=== PATIENT | female | born 1985 | race Caucasian/White ===

== ENCOUNTER 2020-01-30 07:55 | Emergency (ER) | payer MEDICAID, SELFPAY ==
[~2020-01-30] VITALS: Ht 162.6 cm; Wt 127.0 kg
[2020-01-30 08:02] VITALS: BP 125/47
--- NOTE | 2020-01-30 08:09 | NUR ---
PATIENT AMBULATED TO BED 8.
--- NOTE | 2020-01-30 08:28 | NUR ---
34 Y/O FEMALE C/O VOMITING/DIARRHEA SINCE YESTERDAY AND NAUSEA SINCE OCTOBER. PT DENIES ANY ABD PAIN AT THIS TIME, STATES SHE FEELS "PRESSURE" IN HER ABDOMINAL AREA. BOWEL SOUNDS NORMOACTIVE IN ALL QUADRANTS. ABD SOFT/ NON DISTENDED. SKIN COOL/DRY. MUCOUS MEMBRANES PINK AND MOIST. RESP EVEN AND UNLABORED IN ALL QUADRANTS. VSS. NKA
[2020-01-30] MEDS: NACL 0.9% 1,000 ML IV ONE (08:51)
[2020-01-30] MEDS: ONDANSETRON 4 MG/2 ML VIAL IVP ONE (08:52)
[2020-01-30 09:06] LABS: BASOPHILS % (AUTO) 0.3 % (0.0-2.0); EOSINOPHILS # (AUTO) 0.1 K/uL (0-0.4); EOSINOPHILS % (AUTO) 1.9 % (0.0-4.0); HEMATOCRIT 42.6 % (36-48); LYMPHOCYTES # (AUTO) 0.8 K/uL (2.5-16.5); LYMPHOCYTES % (AUTO) 15.4 % (20.5-51.1); MEAN CORPUSCULAR HEMOGLOBIN 31 pg (27-31); MEAN CORPUSCULAR HGB CONC 33 g/dL (33-37); MEAN CORPUSCULAR VOLUME 93.3 fL (80-94); MONOCYTES # (AUTO) 0.3 K/uL (0.8-1.0); MONOCYTES % (AUTO) 5.5 % (1.7-9.3); NEUTROPHILS # (AUTO) 4.1 K/uL (1.8-7.7); NEUTROPHILS % (AUTO) 76.9 % (42.2-75.2); PLATELET COUNT (AUTO) 216 K/uL (140-450); RED BLOOD CELL COUNT(AUTO) 4.57 MIL/uL (4.20-5.40); RED CELL DISTRIBUTION WIDTH 13.8 % (11.6-13.7); WHITE BLOOD COUNT (AUTO) 5.3 K/uL (4.8-10.8)
--- NOTE | 2020-01-30 09:19 | NUR ---
PT UNABLE TO PROVIDE URINE AT THIS TIME, JEF SERNA NOTIFIED
[2020-01-30 10:04] LABS: CARBON DIOXIDE 23.5 mmol/L (21-32); CREATININE 0.8 mg/dL (0.6-1.3); TOTAL BILIRUBIN 0.3 mg/dL (0.0-1.0)
[2020-01-30 10:19] LABS: POTASSIUM 3.6 mmol/L (3.5-5.1)
[2020-01-30 11:01] VITALS: BP 125/47
--- NOTE | 2020-01-30 11:01 | NUR ---
Patient discharged with v/s stable. Written and verbal after care instructions given and explained. Patient alert, oriented and verbalized understanding of instructions. Ambulatory with steady gait. All questions addressed prior to discharge. ID band removed. Patient advised to follow up with PMD. Rx of ALEXANDREA APONTE given. Patient educated on indication of medication including possible reaction and side effects. Opportunity to ask questions provided and answered.
[2020-01-30 13:17] LABS: APPEARANCE,URINE HAZY (CLEAR); BILIRUBIN,URINE NEGATIVE (NEGATIVE); BLOOD, URINE 1+ (NEGATIVE); COLOR,URINE YELLOW (YELLOW); LEUKOCYTE ESTERASE ,URINE TRACE (NEGATIVE); NITRITE, URINE NEGATIVE (NEGATIVE); PH,URINE 5.5 (5.0-9.0); UGLUCOSE NEGATIVE (NEGATIVE)
[2020-01-30 13:28] LABS: WBC,URINE 0-5 /HPF (0-5)
--- NOTE | 2020-01-31 10:40 | NUR ---
LATE ENTRY- Normal saline 0.9% IV fluids discontinued at 1101.
== END 2020-01-30 11:01 | disposition home or self-care (01) ==
LOC: MED 07:55
DX: R11.2 Nausea with vomiting, unspecified (principal); F12.90 Cannabis use, unspecified, uncomplicated; N83.291 Other ovarian cyst, right side; Z20.828 Contact with and (suspected) exposure to other viral communicable diseases
CPT/HCPCS: 36415; 80053; 81001; 81025; 83690; 85025; 96361; 96374; 99283; J2405; J7030; U0003